=== PATIENT | male | born 2005 | race Caucasian/White ===

== ENCOUNTER → 2023-01-05 | Emergency (ER) | payer MEDICAID ==
[~2023-01-05] VITALS: Ht 167.6 cm; Wt 75.5 kg
[~2023-01-05] MED LIST: CLOT10TR2 MT; P20 MT; VALA100044 MT
[2023-01-05 21:24] VITALS: O2SAT 99
[2023-01-05 22:33] VITALS: TEMP 98
[2023-01-05 23:02] VITALS: BP 130/75; PULSE 82; RESP 18
[2023-01-09 04:07] LABS: HIV SCREEN 4G Non Reactive (Non Reactive)
== END ==
LOC: ER 21:20
DX: G51.0 Bell's palsy (principal); B37.0 Candidal stomatitis
CPT/HCPCS: 87389; 99283